=== PATIENT | female | born 1965 | race Caucasian/White ===

== ENCOUNTER 2019-12-02 10:36 | Inpatient (IN) | payer BC, OTHER ==
[~2019-12-02] VITALS: Ht 167.6 cm; Wt 57.7 kg
--- OUTSIDE RECORDS SUMMARY | 2019-12-02 10:38 | XMS REPORT ---
Author [facility] Address Unknown Phone Unavailable Care Team Providers Care Electromechanisms Design Drafter Name Role Phone Unavailable Unavailable Payers Payer Name Policy Type Policy Number Effective Date Expiration Date Problems This patient has no known problems. Allergies, Adverse Reactions, Alerts Allergy Name Allergy Type Status Severity Reaction(s) Onset Date Inactive Date Treating Clinician Comments No Known Allergies DA Active U 2017-08-17 00:00:00 Medications This patient has no known medications. Results Test Description Test Time Test Comments Text Results Atomic Results Result Comments - MRI L-SPINE W/O CONT 2019-05-13 16:05:00 Patient Name: DEON BREWER Unit No: [id number] EXAMS: CPT CODE: [id number] MRI L-SPINE W/O CONT [id number] DIAGNOSIS: 1. At L1-2 there is 2 mm of disc bulging without canal or foraminal 2. At L2-3 there is no evidence for disc bulge or herniation, bony canal or foraminal stenosis. 3. At L3-4 there is no evidence for disc bulge or herniation, bony canal or foraminal stenosis. 4. At L4-5 there is no evidence for disc bulge or herniation. There is mild left foraminal narrowing with asymmetric left facet degeneration and a small left facet effusion. Mild narrowing of the central canal is seen without right foraminal narrowing. 5. At L5- S1 there is no evidence for disc bulge or herniation, bony canal or foraminal stenosis. COMMENT: COMPARISON: No prior exams available. Scans were performed in the sagittal and axial planes utilizing T1, T2 and inversion recovery images. Signal intensities in the lumbar vertebra within normal limits. The discs are desiccated. Disc configurations are as described. Spondylitic changes are as noted. The conus is in the expected location. The description these findings assumes a normal count of 5 lumbar type vertebra. at 1601 Reported and signed by: Kayode Jerez MD CC: Catracho Huddleston MD Technologist: Manuel Fountain(R) Transcribed D/ ([id number]) [email or web address] [facility] NAME: DEON BREWER [address] [facility] PHYS: Catracho Adames MD : 1965 AGE: 53 SEX: F [place] [address] LOC: Y.MRI PHONE #: [phone] EXAM DATE: 05/13/2019 STATUS: REG CLI FAX #: [phone] RAD #: D/C DT PAGE 1 Signed Report Patient Name: DENO BREWER Unit No: [id number] EXAMS: CPT CODE: [id number] MRI L-SPINE W/O CONT [id number] <Continued> Orig Print D/T: S: 05/13/2019 ([id number]) [facility] NAME: DEON BREWER [address] [facility] PHYS: Catracho Adames MD : 1965 AGE: 53 SEX: F [place] [address] LOC: Y.MRI PHONE #: [phone] EXAM DATE: 05/13/2019 STATUS: REG CLI FAX #: [phone] RAD #: D/C DT PAGE 2 Signed Report
[2019-12-02] MEDS ORDERED: METHYLPREDNISOLONE SOD SUCC 125 MG/2ML VIAL IV STA (10:44)
[2019-12-02] MEDS ORDERED: ALBUTEROL SULF 0.083% NEB SOLN 3 ML NEB NEB STA (10:44)
[2019-12-02] MEDS ORDERED: CEFTRIAXONE SOD 1 GM/NS 50 ML 50 ML IV STA (10:44)
[2019-12-02] MEDS ORDERED: ACETAMINOPHEN/CODEINE ELIX 120-12 MG/5 ML UDC PO ONE (10:45)
[2019-12-02] MEDS ORDERED: AZITHROMYCIN 500MG/NS 250 ML 250 ML IV ONE (11:15)
--- NOTE | 2019-12-02 11:21 | Diagnostic Imaging Report ---
Chest, 2 views, 12/02/2019. History: Shortness of breath. Comparison: None available. Findings: The cardiomediastinal silhouette and pulmonary vasculature are within normal limits. There is minimal left apical pleural thickening. Patchy opacities are present in both lung bases with minimal blunting of the costophrenic sulci bilaterally. There are no acute osseous or soft tissue abnormalities. Impression: Patchy bibasilar opacities with small pleural effusions. Findings may represent atelectasis but pneumonia cannot be excluded. Signed by: Sebastian Erazo on 12/02/2019 11:18 AM
[2019-12-02] MEDS: IPRATROPIUM BROMIDE 0.02% 2.5 ML NEB NEB STA ×2 (12:10→12:36)
[2019-12-02 12:23] LABS: BASOPHILS % 0.3 % (0.0-1.0); EOSINOPHILS # (AUTO) 0.1 (0.0-0.4); EOSINOPHILS % 0.4 % (0.0-6.0); HEMATOCRIT 37.8 % (34.2-44.1); HEMOGLOBIN 12.8 g/dL (12.0-16.0); LYMPHOCYTES # (AUTO) 0.8 (1.0-3.2); LYMPHOCYTES % 6.3 % (18.0-39.1); MEAN CORPUSCULAR HEMOGLOBIN 29.7 pg (28-32); MEAN CORPUSCULAR HGB CONC 33.9 g/dL (31-35); MEAN CORPUSCULAR VOLUME 87.7 fL (81-99); MONOCYTES # (AUTO) 0.7 (0.2-0.8); MONOCYTES % 5.6 % (4.4-11.3); NEUTROPHILS # (AUTO) 10.9 (2.1-6.9); NEUTROPHILS % 86.3 % (38.7-80.0); PLATELET COUNT 300 x10e3/uL (140-360); RED BLOOD COUNT 4.31 x10e6/uL (3.6-5.1)
[2019-12-02 12:45] LABS: ALANINE AMINOTRANSFERASE 39 IU/L (0-55); ALBUMIN 3.1 g/dL (3.5-5.0); ALBUMIN/GLOBULIN RATIO 0.8 (0.8-2.0); ALKALINE PHOSPHATASE 124 IU/L (40-150); ANION GAP 20.9 mmol/L (8-16); BLOOD UREA NITROGEN 8 mg/dL (7-26); BUN/CREATININE RATIO 11 (6-25); CALCIUM 9.2 mg/dL (8.4-10.2); CARBON DIOXIDE 20 mmol/L (22-29); CHLORIDE 103 mmol/L (98-107); CREATININE, SERUM 0.71 mg/dL (0.57-1.11); EST GLOMERULAR FILTRATION RATE > 60 ML/MIN (60-); GLUCOSE 81 mg/dL (74-118); SODIUM 141 mmol/L (136-145)
[2019-12-02 12:53] LABS: POTASSIUM 2.9 mmol/L (3.5-5.1)
[2019-12-02] MEDS ORDERED: POTASSIUM CHLORIDE 20 MEQ TAB CR PO STA (13:38)
[2019-12-02] MEDS ORDERED: AZITHROMYCIN 500MG/SOD CHL 0.9% 250ML BAG IV SCH (14:15)
[2019-12-02] MEDS ORDERED: CEFTRIAXONE SOD 1 GRAM/0.9% SOD CHL 50ML BAG IV SCH (14:15)
[2019-12-02] MEDS ORDERED: SODIUM CHLORIDE 0.9% 1000ML 1,000 ML IV ONE (14:15)
[2019-12-02] MEDS: ALBUTEROL SULF 0.083% NEB SOLN 3 ML NEB NEB SCH ×3 (15:00→23:30)
[2019-12-02 15:07] LABS: CREATINE KINASE MB 0.7 ng/mL (0-5.0)
[2019-12-02] MEDS ORDERED: ACETAMINOPHEN 325 MG TAB PO PRN (15:15)
[2019-12-02 19:00] VITALS: BP 127/65
--- NOTE | 2019-12-02 19:06 | NUR ---
Report received from day RN.Pt in semi-fowlers position resting in bed. Pt is alert and oriented x4. DX asthma/pneumonia. Respirations even and unlabored. Lungs clear. Pt remains on Room Air. Pt ask about getting resp tx since arriving to floor.Denies productive cough since come to room.PIV 22 g in rt hand patent with healthy site. Allergy to Tomatoes noted. Pt denies med allergies.NS infusing at 100ml/hr x 1 bag.Pt ambulate to BR with limited assist.Hx stress incontinence when cough- pads at bedside.oriented pt and family to room and [facility]. Bed in low position. Nonskid socks on. Call light within reach.
[2019-12-02 19:16] VITALS: BP 127/65
[2019-12-02] MEDS: IPRATROPIUM BROMIDE 0.02% 2.5 ML NEB NEB SCH (19:35)
[2019-12-02] MEDS: ACETAMINOPHEN/CODEINE 300MG - 30MG TAB PO PRN (20:36)
[2019-12-02 21:05] LABS: CREATINE KINASE 106 IU/L (29-168)
--- NOTE | 2019-12-02 22:52 | History and Physical ---
HISTORY OF PRESENT ILLNESS: The patient is a 53-year-old female with past medical history mainly positive for asthma, came to the hospital because of cough, phlegm, and shortness of breath. She was found to have bilateral pneumonia. She is going to be admitted to the hospital. REVIEW OF SYSTEMS: CARDIOVASCULAR: No chest pain or palpitation. RESPIRATORY: Cough and phlegm. GASTROINTESTINAL: No nausea or vomiting. No diarrhea. GENITOURINARY: No frequency or dysuria. ALLERGIES: SHE IS NOT ALLERGIC TO ANY MEDICATION. SHE IS ALLERGIC TO SOME FOOD . SOCIAL HISTORY: She does not smoke. She does not drink. PAST MEDICAL HISTORY: Positive for asthma. PHYSICAL EXAMINATION: HEART: Showed regular rhythm. Normal S1, S2 sound. LUNGS: Clear bilaterally. ABDOMEN: Soft. EXTREMITIES: Show no edema. IMPRESSION: 1. Bilateral pneumonia. 2. Hypokalemia. 3. Asthma exacerbation. The chest x-ray showed bilateral possible infiltrate versus atelectasis. The more remarkable finding on the BMP with potassium 3.0. [place] [address]. The patient was started on Zithromax, Rocephin, albuterol, Atrovent as needed for shortness of breath. Potassium has been replaced. We are going to recheck the potassium and CBC tomorrow, blood culture has been sent. MD LORELEI Qureshi/CASSANDRA /[id number]
[2019-12-03] MEDS ORDERED: SINGULAIR10 MG PO (02:22)
[2019-12-03] MEDS ORDERED: COMBIVENT RESPIM4 GM IH (02:22)
[2019-12-03] MEDS ORDERED: fishoil PO (02:22)
[2019-12-03] MEDS ORDERED: VITAMIN B-121000 MCG PO (02:22)
[2019-12-03] MEDS ORDERED: SYMBICORT 16010.2 GM INH (02:22)
[2019-12-03] MEDS ORDERED: vitamin PO (02:22)
[2019-12-03] MEDS ORDERED: XOLAIR150 MG IM (02:22)
[2019-12-03] MEDS: ALBUTEROL SULF 0.083% NEB SOLN 3 ML NEB NEB SCH ×5 (02:45→19:45)
[2019-12-03] MEDS: IPRATROPIUM BROMIDE 0.02% 2.5 ML NEB NEB SCH ×4 (02:45→19:45)
[2019-12-03] MEDS: ACETAMINOPHEN/CODEINE 300MG - 30MG TAB PO PRN (04:12)
--- NOTE | 2019-12-03 06:18 | Diagnostic Imaging Report ---
EXAMINATION: CHEST SINGLE (PORTABLE) INDICATION: PNEUMONIA COMPARISON: 12/02/2019. FINDINGS: TUBES and LINES: None. LUNGS: Bibasilar patchy densities are again observed, without significant interval change allowing for technical differences. PLEURA: No pneumothorax. Bilateral trace pleural effusions. HEART AND MEDIASTINUM: The cardiomediastinal silhouette is unremarkable. BONES AND SOFT TISSUES: No acute osseous lesion. Soft tissues are unremarkable. UPPER ABDOMEN: No free air under the diaphragm. IMPRESSION: Bibasilar patchy densities are again observed, without significant interval change. Signed by: Dr. Ruth Aquino M.D. on 12/03/2019 6:14 AM
[2019-12-03 06:54] LABS: BASOPHILS % 0.2 % (0.0-1.0); HEMATOCRIT 30.3 % (34.2-44.1); HEMOGLOBIN 10.3 g/dL (12.0-16.0); LYMPHOCYTES # (AUTO) 0.5 (1.0-3.2); LYMPHOCYTES % 3.2 % (18.0-39.1); MEAN CORPUSCULAR HEMOGLOBIN 29.4 pg (28-32); MEAN CORPUSCULAR VOLUME 86.6 fL (81-99); MONOCYTES # (AUTO) 0.7 (0.2-0.8); MONOCYTES % 4.7 % (4.4-11.3); NEUTROPHILS # (AUTO) 14.1 (2.1-6.9); NEUTROPHILS % 90.9 % (38.7-80.0); PLATELET COUNT 269 x10e3/uL (140-360); RED CELL DISTRIBUTION WIDTH 12.1 % (11.7-14.4)
--- NOTE | 2019-12-03 07:05 | NUR ---
RCD PT AT BED PT IS ALERT AND ORIENTED AND RESTING ON BED IV PATENT BY SALINE FLUSH BED LOW AND LOCKED CALL LIGHT IN REACH
[2019-12-03 07:24] LABS: CREATINE KINASE 95 IU/L (29-168)
[2019-12-03 07:26] LABS: ALANINE AMINOTRANSFERASE 28 IU/L (0-55); ALBUMIN 2.6 g/dL (3.5-5.0); ALBUMIN/GLOBULIN RATIO 0.8 (0.8-2.0); ALKALINE PHOSPHATASE 92 IU/L (40-150); ANION GAP 15.2 mmol/L (8-16); BLOOD UREA NITROGEN 6 mg/dL (7-26); BUN/CREATININE RATIO 10 (6-25); CALCIUM 8.5 mg/dL (8.4-10.2); CARBON DIOXIDE 21 mmol/L (22-29); CHLORIDE 108 mmol/L (98-107); CREATININE, SERUM 0.62 mg/dL (0.57-1.11); EST GLOMERULAR FILTRATION RATE > 60 ML/MIN (60-); GLUCOSE 153 mg/dL (74-118); POTASSIUM 3.2 mmol/L (3.5-5.1); SODIUM 141 mmol/L (136-145)
[2019-12-03 08:30] VITALS: BP 121/69
[2019-12-03] MEDS ORDERED: SODIUM CHLORIDE 0.9% 250ML 250 ML ONE (08:55)
[2019-12-03] MEDS: CEFTRIAXONE SOD 1 GM/NS 50 ML 50 ML IV SCH (09:00)
[2019-12-03] MEDS: AZITHROMYCIN 500MG/NS 250 ML 250 ML IV SCH (09:49)
[2019-12-03 11:51] VITALS: BP 86/60
[2019-12-03] MEDS: GUAIFENESIN/DEXTROMETHORPHAN LIQD 5 ML UDC NG PRN (14:33)
[2019-12-03] MEDS: BENZONATATE 100 MG CAP PO SCH ×2 (15:00→20:49)
--- NOTE | 2019-12-03 15:04 | NUR ---
PT REQUESTED TO STEROID BECAUSE TALK TO THE PT HE IS GOING START STEROID I DIDN'T SEE ANY ORDERS SO PAGED DR Marlen AKINS FOR CLARIFICATION
--- NOTE | 2019-12-03 15:11 | NUR ---
DR AKINS RETURNED THE CALL NO NEW ORDERS
[2019-12-03 17:04] VITALS: BP 128/78
--- NOTE | 2019-12-03 18:41 | NUR ---
PT RESTING ON BED BED SIDE REPORT GIVEN TO ONCOMING NURSE
--- NOTE | 2019-12-03 19:47 | NUR ---
BEDSIDE SHIFT REPORT RECEIVED FROM DAYSHIFT RN, PATIENT SEEN SITTING IN BED, WITH FAMILY AT BEDSIDE, AOX4, NO DISTRESS NOTED, DENIES PAIN RO DISCOMFORT, STATES "I JUST FEEL BAD", HX OF ASTHMA NOTED, CARDIAC ENZYMES (-) X 3, DX PNA, RT IN ROOM WITH SCHEDULE MEDICATION ADMIN, EDUCATED ON PLAN OF CARE, CALL LIGHT PLACED WITHIN REACH, ADVISED NOT TO AMBULATE IF SHE FEELS WEAK AND NEEDS ASSISTANCE, CALL DONT FALL
[2019-12-03 20:00] VITALS: BP 126/70
[2019-12-03 21:23] VITALS: BP 126/70
[2019-12-03 21:26] VITALS: BP 126/70
[2019-12-04] VITALS (11 sets, daily range): BP systolic 104–133; BP diastolic 61–89
--- NOTE | 2019-12-04 00:12 | NUR ---
HOURLY ROUNDING COMPLETED, PATIENT AWAKE ALERT, NO DISTRESS NOTED, DENIES CHEST PAIN R/T COUGH CALL LIGHT WITHIN REACH
[2019-12-04] MEDS: ALBUTEROL SULF 0.083% NEB SOLN 3 ML NEB NEB SCH ×7 (04:00→23:45)
[2019-12-04 06:36] LABS: BASOPHILS % 0.4 % (0.0-1.0); EOSINOPHILS # (AUTO) 0.1 (0.0-0.4); EOSINOPHILS % 1.3 % (0.0-6.0); HEMATOCRIT 32.5 % (34.2-44.1); HEMOGLOBIN 10.4 g/dL (12.0-16.0); LYMPHOCYTES # (AUTO) 1.7 (1.0-3.2); LYMPHOCYTES % 15.1 % (18.0-39.1); MEAN CORPUSCULAR HEMOGLOBIN 28.9 pg (28-32); MEAN CORPUSCULAR VOLUME 90.3 fL (81-99); MONOCYTES # (AUTO) 0.6 (0.2-0.8); MONOCYTES % 5.2 % (4.4-11.3); NEUTROPHILS # (AUTO) 8.7 (2.1-6.9); NEUTROPHILS % 77.4 % (38.7-80.0); PLATELET COUNT 292 x10e3/uL (140-360); RED CELL DISTRIBUTION WIDTH 12.5 % (11.7-14.4)
[2019-12-04 06:58] LABS: BLOOD UREA NITROGEN 6 mg/dL (7-26); BUN/CREATININE RATIO 9 (6-25); CALCIUM 8.6 mg/dL (8.4-10.2); CARBON DIOXIDE 25 mmol/L (22-29); CHLORIDE 106 mmol/L (98-107); CREATININE, SERUM 0.68 mg/dL (0.57-1.11); EST GLOMERULAR FILTRATION RATE > 60 ML/MIN (60-); GLUCOSE 81 mg/dL (74-118); SODIUM 143 mmol/L (136-145)
--- NOTE | 2019-12-04 07:10 | NUR ---
RCD PT AT BED PT IS ALERT AND ORIENTED AND RESTING ON BED IV PATENT BY SALINE FLUSH BED LOW AND LOCKED CALL LIGHT IN REACH
--- NOTE | 2019-12-04 07:27 | NUR ---
BSSR GIVEN TO DANIELLE RN, PATIENT AWAKE ALERT, NO DISTRESS NOTE, UPDATES GIVEN TO RN, PT AT BEDSIDE CALL LIGHT WITHIN REACH
[2019-12-04] MEDS: IPRATROPIUM BROMIDE 0.02% 2.5 ML NEB NEB SCH ×5 (07:30→23:45)
[2019-12-04] MEDS: CEFTRIAXONE SOD 1 GM/NS 50 ML 50 ML IV SCH (09:00)
[2019-12-04] MEDS: BENZONATATE 100 MG CAP PO SCH ×3 (09:00→20:15)
--- NOTE | 2019-12-04 09:00 | NUR ---
PAGED DR Marlen AKINS AND NOTIFIED POTASSIUM LEVEL GOT NEW ORDERS
[2019-12-04] MEDS ORDERED: POTASSIUM CHLORIDE 20 MEQ TAB CR PO NR (09:15)
[2019-12-04] MEDS: AZITHROMYCIN 500MG/NS 250 ML 250 ML IV SCH (09:21)
[2019-12-04] MEDS ORDERED: POTASSIUM CHLORIDE 20 MEQ TAB CR PO ONE (11:30)
--- NOTE | 2019-12-04 18:48 | NUR ---
PT RESTING ON BED BED SIDE REPORT GIVEN TO ONCOMING NURSE
[2019-12-05] VITALS (14 sets, daily range): BP systolic 96–122; BP diastolic 62–79
[2019-12-05] MEDS: ALBUTEROL SULF 0.083% NEB SOLN 3 ML NEB NEB SCH ×5 (03:40→19:44)
[2019-12-05 06:24] LABS: ANION GAP 16.8 mmol/L (8-16); BLOOD UREA NITROGEN 6 mg/dL (7-26); BUN/CREATININE RATIO 9 (6-25); CALCIUM 8.9 mg/dL (8.4-10.2); CARBON DIOXIDE 23 mmol/L (22-29); CHLORIDE 106 mmol/L (98-107); CREATININE, SERUM 0.65 mg/dL (0.57-1.11); EST GLOMERULAR FILTRATION RATE > 60 ML/MIN (60-); GLUCOSE 91 mg/dL (74-118); POTASSIUM 3.8 mmol/L (3.5-5.1); SODIUM 142 mmol/L (136-145)
[2019-12-05] MEDS: IPRATROPIUM BROMIDE 0.02% 2.5 ML NEB NEB SCH ×3 (06:51→19:44)
[2019-12-05] MEDS: GUAIFENESIN/DEXTROMETHORPHAN LIQD 5 ML UDC NG PRN (07:28)
--- NOTE | 2019-12-05 07:30 | NUR ---
BSSR GIVEN TO ANTHONY RN, PATIENT C/O COUGH, MILD CHEST PAIN R/T COUGH, PRN COUGH MEDICATION GIVEN PO, PATIENT TOLERATED WELL,
--- NOTE | 2019-12-05 07:31 | NUR ---
bedside shift report received from rn shift mgr RN. pt in stable condition. will continue to monitor.
[2019-12-05 08:44] LABS: BASOPHILS % 0.5 % (0.0-1.0); EOSINOPHILS # (AUTO) 0.2 (0.0-0.4); EOSINOPHILS % 2.2 % (0.0-6.0); HEMATOCRIT 35.5 % (34.2-44.1); HEMOGLOBIN 11.7 g/dL (12.0-16.0); LYMPHOCYTES # (AUTO) 1.3 (1.0-3.2); LYMPHOCYTES % 16.1 % (18.0-39.1); MEAN CORPUSCULAR HEMOGLOBIN 29.5 pg (28-32); MEAN CORPUSCULAR VOLUME 89.6 fL (81-99); MONOCYTES # (AUTO) 0.5 (0.2-0.8); NEUTROPHILS # (AUTO) 6.1 (2.1-6.9); NEUTROPHILS % 74.5 % (38.7-80.0); PLATELET COUNT 333 x10e3/uL (140-360); RED BLOOD COUNT 3.96 x10e6/uL (3.6-5.1); RED CELL DISTRIBUTION WIDTH 12.6 % (11.7-14.4)
[2019-12-05] MEDS: ACETAMINOPHEN/CODEINE 300MG - 30MG TAB PO PRN (11:24)
[2019-12-05] MEDS: BENZONATATE 100 MG CAP PO SCH ×3 (11:25→21:00)
[2019-12-05] MEDS: CEFTRIAXONE SOD 1 GM/NS 50 ML 50 ML IV SCH (11:25)
--- NOTE | 2019-12-05 12:33 | Progress Note ---
DATE: 12/05/2019 Internal Medicine Progress Note SUBJECTIVE: The patient is doing well except for feeling weak. PHYSICAL EXAMINATION: VITAL SIGNS: Temperature 97.7, heart rate 101 per minute, respiratory rate 17 per minute, blood pressure 117/79, and pulse oximeter 90%. HEART: Showed regular rhythm. Normal S1, S2 sound. LUNGS: Clear bilaterally. ABDOMEN: Soft. LABORATORY DATA: Influenza A and B negative on the CBC; white count 8.16, hemoglobin 11.7, hematocrit 35.5, platelet count 333,000. On the BMP; sodium 142, potassium 3.8, chloride 106, CO2 23, BUN 6, creatinine 0.65, glucose 91, calcium 8.9. Blood cultures so far negative for 48 hours. The last chest x-ray show bibasilar patchy densities without significant interval change. FINAL IMPRESSION: 1. Bilateral pneumonia. 2. Asthma exacerbation. PLAN OF TREATMENT: Continue Zithromax 250 mg IV daily, ceftriaxone 1 g IV daily. Continue Tylenol 325 mg q.4 hours as needed for pain, Tylenol with codeine 1 tablet q.6 hours as needed for [id number] pain, albuterol q.4 hours, Tessalon 100 mg three times a day as needed, Robitussin we are going to discontinue of course, it is a duplicate, Atrovent every 6 hours. Potassium has been replaced one time. MD LORELEI Qureshi/CASSANDRA /[id number]
[2019-12-05] MEDS: AZITHROMYCIN 500MG/NS 250 ML 250 ML IV SCH (12:51)
--- NOTE | 2019-12-05 19:30 | NUR ---
SBSR RECEIVED FROM DAYSHIFT RN, PATIENT STABLE, NO DISTRESS NOTED, WILL CONTINUE TO MONITOR, CALL LIGHT WITHIN REACH
--- NOTE | 2019-12-05 20:46 | NUR ---
patient seen walking w/o assistance in hallway to escort her to elevator, gait steady, no distress noted
[2019-12-06] VITALS (9 sets, daily range): BP systolic 104–138; BP diastolic 61–72
[2019-12-06] MEDS: IPRATROPIUM BROMIDE 0.02% 2.5 ML NEB NEB SCH ×2 (00:05→06:50)
[2019-12-06] MEDS: ALBUTEROL SULF 0.083% NEB SOLN 3 ML NEB NEB SCH ×4 (00:05→11:30)
[2019-12-06] MEDS: CEFTRIAXONE SOD 1 GM/NS 50 ML 50 ML IV SCH (09:00)
[2019-12-06] MEDS: AZITHROMYCIN 500MG/NS 250 ML 250 ML IV SCH (10:00)
[2019-12-06] MEDS: BENZONATATE 100 MG CAP PO SCH (11:46)
[2019-12-06] MEDS ORDERED: ZITHROMAX250 MG PO (13:18)
[2019-12-06] MEDS ORDERED: CEFUROXIME500 MG PO (13:20)
--- NOTE | 2019-12-07 04:18 | Discharge Summary ---
HISTORY: This 53-year-old female with past medical history positive for asthma, came to the hospital with cough phlegm, found to have pneumonia, started on IV antibiotics. The patient is doing much better now oxygen saturation 96%. Asymptomatic. No fever. White count is normal, patient is going home today. PHYSICAL EXAMINATION: HEART: Showed regular rhythm. Normal S1, S2 sound. LUNGS: Clear bilaterally. VITAL SIGNS: Temperature 96.0, heart rate 108 per minute, respiratory rate 21 per minute, blood pressure 117/61, pulse oximetry 91 percent. LABORATORY DATA: BMP sodium 142, potassium 3.8, chloride 106, CO2 23, BUN 6, creatinine 0.65, glucose 91, last blood sugar is 91, white blood count 8.16, hemoglobin 11.7, hematocrit 35.5, platelet count 333,000. Blood cultures negative. Last chest x-ray show pre-basilar patchy densities without change. IMPRESSION: 1. Pneumonia. 2. Asthma exacerbation. PLAN OF TREATMENT: The patient is going to be discharged home on Zithromax 250 mg daily for seven days, Ceftin 500 mg twice a day for seven days. Continue albuterol and Atrovent every 4 hours as needed for shortness of breath. She is taking also Symbicort twice a day . MD LORELEI Qureshi/CASSANDRA /[id number]
== END 2019-12-06 14:15 | disposition home or self-care (01) | DRG 194 ==
LOC: ER 10:36 → ERHOLD 14:52 → MED/SURG2 18:19
PROVIDERS: ADMIT Internal Medicine; ATTEND Internal Medicine
DX: J18.9 Pneumonia, unspecified organism (principal); J45.901 Unspecified asthma with (acute) exacerbation; E87.6 Hypokalemia
CPT/HCPCS: 36415; 71045; 71046; 80048; 80053; 82550; 82553; 82948; 83735; 84484; 85025; 87040; 87400; 94640; 99284; J0456; J0696; J2930; J7030; J7050